=== PATIENT | male | born 1985 | race Caucasian/White ===

== ENCOUNTER 2020-05-31 05:06 | Emergency (ER) | payer OTHER, MEDICAID ==
[2020-05-31] MEDS ORDERED: ZESTRIL20 M1 PO (05:29)
[2020-05-31] MEDS ORDERED: ULTRAM50 M1 PO (05:29)
[2020-05-31] MEDS ORDERED: TERAZOSIN HCL2 M3 PO (05:30)
[2020-05-31] MEDS ORDERED: REGLAN10 M2 PO (05:30)
[2020-05-31] MEDS ORDERED: PANTOPRAZOLE SO40 MG PO (05:30)
[2020-05-31] MEDS ORDERED: LYRICA75 MG PO (05:31)
[2020-05-31] MEDS ORDERED: BUSPIRONE5 MG PO (05:31)
[2020-05-31] MEDS ORDERED: CYMBALTA60 M1 PO (05:31)
[2020-05-31] MEDS ORDERED: ZANAFLEX4 M1 PO (05:32)
[2020-05-31] MEDS ORDERED: EC-NAPROSYN500 MG PO (06:16)
[2020-05-31 06:26] VITALS: BP 103/77
== END 2020-05-31 06:26 | disposition home or self-care (01) ==
LOC: ED 05:06
DX: M79.671 Pain in right foot (principal); G89.29 Other chronic pain; I10 Essential (primary) hypertension; K21.9 Gastro-esophageal reflux disease without esophagitis; F32.9 Major depressive disorder, single episode, unspecified; Z85.841 Personal history of malignant neoplasm of brain; Z87.891 Personal history of nicotine dependence
CPT/HCPCS: J1885

== ENCOUNTER 2020-06-11 07:22 | Emergency (ER) | payer MEDICARE, MEDICAID ==
[~2020-06-11] VITALS: Ht 190.5 cm; Wt 120.9 kg
[~2020-06-11 07:22] MED LIST: BUSPIRONE5 MG PO; CYMBALTA60 M1 PO; EC-NAPROSYN500 MG PO; LYRICA75 MG PO; PANTOPRAZOLE SO40 MG PO; REGLAN10 M2 PO; TERAZOSIN HCL2 M3 PO; ULTRAM50 M1 PO; ZANAFLEX4 M1 PO; ZESTRIL20 M1 PO
[2020-06-11 09:47] VITALS: BP 161/113
== END 2020-06-11 09:47 | disposition home or self-care (01) ==
LOC: ED 07:22
DX: M79.18 Myalgia, other site (principal); I10 Essential (primary) hypertension; Z79.891 Long term (current) use of opiate analgesic; Z87.891 Personal history of nicotine dependence